=== PATIENT | female | born 1965 | race Caucasian/White ===

== ENCOUNTER 2018-08-23 05:20 | Inpatient (IN) | payer BC ==
[2018-08-23] MEDS ORDERED: LACTATED RINGER'S 1,000 ML IV (07:00)
[2018-08-23] MEDS ORDERED: ROCURONIUM 50 MG INJ (07:48)
[2018-08-23] MEDS ORDERED: PROPOFOL 20 ML (07:48)
[2018-08-23] MEDS ORDERED: MIDAZOLAM 1 MG/ML 2 ML INJ (07:48)
[2018-08-23] MEDS ORDERED: LIDOCAINE 1% (MDV) 20 ML INJ (07:49)
[2018-08-23] MEDS ORDERED: morphine SULFATE/PF (10 MG/10 ML) INJ (07:55)
[2018-08-23] MEDS ORDERED: DEXAMETHASONE 4 MG/ML 5 ML INJ (09:52)
[2018-08-23] MEDS ORDERED: ONDANSETRON 4 MG INJ (09:52)
[2018-08-23] MEDS ORDERED: ONDANSETRON 4 MG INJ IV (10:30)
[2018-08-23] MEDS ORDERED: DIPHENHYDRAMINE 50 MG INJ IV (10:30)
[2018-08-23] MEDS ORDERED: ZOLPIDEM 5 MG TAB PO (10:30)
[2018-08-23] MEDS ORDERED: HYDROmorphONE 0.5 MG/0.5 ML SYG IV (10:30)
[2018-08-23] MEDS ORDERED: ONDANSETRON INJ 6 MG in DEXTROSE 5% 50 ML IVPB (10:30)
[2018-08-23] MEDS ORDERED: DIPHENHYDRAMINE 50 MG CAP PO (10:30)
[2018-08-23] MEDS ORDERED: HYDROCODONE/APAP (5/325) TAB PO (10:30)
[2018-08-23] MEDS ORDERED: NALOXONE (0.4 MG/ML) INJ IV (10:30)
[2018-08-23] MEDS: HYDROmorphONE 1 MG/ML SYG IV (11:00)
[2018-08-23] MEDS: KETOROLAC 30 MG INJ IV ×3 (11:47→22:42)
[2018-08-23] MEDS: LACTATED RINGER'S 1,000 ML IV ×2 (11:48→18:51)
[2018-08-23] MEDS: CEFAZOLIN 2 GM/50 ML (PMX) 50 ML IVPB (11:55)
[2018-08-23] MEDS: METOCLOPRAMIDE 10 MG TAB PO ×3 (12:20→23:55)
[2018-08-23] MEDS: CEFAZOLIN 1 GM/50 ML (PMX) 50 ML IVPB ×2 (14:20→21:46)
[2018-08-24] MEDS: LACTATED RINGER'S 1,000 ML IV (03:34)
[2018-08-24] MEDS: KETOROLAC 30 MG INJ IV ×4 (04:43→22:52)
[2018-08-24 05:16] LABS: ADD MAN DIFF? NO
[2018-08-24 05:29] LABS: WHITE BLOOD COUNT 14.8 10^3/ul (4.8-10.8)
[2018-08-24 05:29] LABS: BASOPHILS % 0.2 % (0.0-2.0); HEMATOCRIT 30.7 % (37.0-47.0); HEMOGLOBIN 10.3 g/dl (12.0-16.0); LYMPHOCYTES # 1.6 10^3/ul (0.8-2.9); LYMPHOCYTES % 10.8 % (15.0-51.0); MEAN CORPUSCULAR HEMOGLOBIN 30.1 pg (29.0-33.0); MEAN CORPUSCULAR HGB CONC 33.6 g/dl (32.0-37.0); MEAN CORPUSCULAR VOLUME 89.8 fl (82.0-101.0); MEAN PLATELET VOLUME 10.4 fl (7.4-10.4); MONOCYTE # 0.9 10^3/ul (0.3-0.9); NEUTROPHIL # 12.2 10^3/ul (1.6-7.5); NEUTROPHILS % 82.7 % (39.0-77.0); PLATELET COUNT 235 10^3/UL (140-415); RED BLOOD COUNT 3.42 10^6/ul (4.20-5.40); RED CELL DISTRIBUTION WIDTH 14.6 % (11.5-14.5)
[2018-08-24 05:45] LABS: ANION GAP 6 (5-13); BLOOD UREA NITROGEN 18 mg/dl (7-20); CARBON DIOXIDE 26 mmol/L (21-31); CHLORIDE 107 mmol/L (97-110); POTASSIUM 3.8 mmol/L (3.5-5.1); SODIUM 139 mmol/L (135-144)
[2018-08-24] MEDS: CEFAZOLIN 1 GM/50 ML (PMX) 50 ML IVPB (05:51)
[2018-08-24] MEDS: METOCLOPRAMIDE 10 MG TAB PO ×4 (05:51→22:54)
[2018-08-24] MEDS: HYDROCHLOROTHIAZIDE 12.5 MG CAP PO (09:22)
[2018-08-24] MEDS: BENAZEPRIL 40 MG TAB PO (09:23)
[2018-08-24] MEDS: BISACODYL (EC) 5 MG TAB PO (21:06)
[2018-08-25] MEDS: KETOROLAC 30 MG INJ IV ×4 (05:20→22:33)
[2018-08-25] MEDS: METOCLOPRAMIDE 10 MG TAB PO ×3 (05:20→17:05)
[2018-08-25 05:24] LABS: ADD MAN DIFF? NO
[2018-08-25 05:27] LABS: BASOPHILS % 0.4 % (0.0-2.0); EOSINOPHILS # 0.1 10^3/ul (0.0-0.5); EOSINOPHILS % 0.5 % (0.0-7.0); HEMOGLOBIN 9.8 g/dl (12.0-16.0); LYMPHOCYTES # 2.9 10^3/ul (0.8-2.9); MEAN CORPUSCULAR HEMOGLOBIN 30.2 pg (29.0-33.0); MEAN CORPUSCULAR HGB CONC 33.8 g/dl (32.0-37.0); MEAN CORPUSCULAR VOLUME 89.5 fl (82.0-101.0); MEAN PLATELET VOLUME 10.2 fl (7.4-10.4); MONOCYTE # 0.8 10^3/ul (0.3-0.9); NEUTROPHIL # 5.6 10^3/ul (1.6-7.5); NEUTROPHILS % 59.6 % (39.0-77.0); PLATELET COUNT 193 10^3/UL (140-415); RED BLOOD COUNT 3.24 10^6/ul (4.20-5.40); RED CELL DISTRIBUTION WIDTH 14.4 % (11.5-14.5)
[2018-08-25 05:27] LABS: WHITE BLOOD COUNT 9.5 10^3/ul (4.8-10.8)
[2018-08-25] MEDS: HYDROCHLOROTHIAZIDE 12.5 MG CAP PO (08:29)
[2018-08-25] MEDS: BENAZEPRIL 40 MG TAB PO (08:29)
[2018-08-26] MEDS: METOCLOPRAMIDE 10 MG TAB PO ×5 (00:02→23:13)
[2018-08-26] MEDS: KETOROLAC 30 MG INJ IV (04:30)
[2018-08-26] MEDS: HYDROCHLOROTHIAZIDE 12.5 MG CAP PO (08:27)
[2018-08-26] MEDS: BENAZEPRIL 40 MG TAB PO (08:27)
[2018-08-26] MEDS: HYDROCODONE/APAP (5/325) TAB PO ×2 (08:29→21:24)
[2018-08-27] MEDS: METOCLOPRAMIDE 10 MG TAB PO ×2 (05:30→11:46)
[2018-08-27] MEDS: HYDROCODONE/APAP (5/325) TAB PO (05:50)
[2018-08-27] MEDS: HYDROCHLOROTHIAZIDE 12.5 MG CAP PO (09:17)
[2018-08-27] MEDS: BENAZEPRIL 40 MG TAB PO (09:18)
== END 2018-08-27 15:20 | disposition home or self-care (01) | DRG 743 ==
LOC: REC 05:20 → MS1 11:11
PROC: 0UT90ZZ Resection of Uterus, Open Approach (ICD-10-PCS; principal; 2018-08-23 07:30)
PROC: 0UT70ZZ Resection of Bilateral Fallopian Tubes, Open Approach (ICD-10-PCS; 2018-08-23 07:30)
PROC: 0UB00ZZ Excision of Right Ovary, Open Approach (ICD-10-PCS; 2018-08-23 07:30)
DX: D25.9 Leiomyoma of uterus, unspecified (principal); I10 Essential (primary) hypertension; D64.9 Anemia, unspecified; N83.201 Unspecified ovarian cyst, right side; K57.90 Diverticulosis of intestine, part unspecified, without perforation or abscess without bleeding; N28.1 Cyst of kidney, acquired
CPT/HCPCS: 74176; 80051; 82565; 84520; 85025; 86850; 86900; 86901; 86920; 87086; 88305